=== PATIENT | male | born 1950 | race Caucasian/White ===

== ENCOUNTER 2020-11-16 18:15 | Inpatient (IN) ==
[2020-11-16] MEDS ORDERED: Thiamine (B-1) 100 MG TABLET PO STA (18:37)
[2020-11-16] MEDS ORDERED: Folic Acid 1 MG TABLET PO STA (18:37)
[2020-11-16] MEDS ORDERED: Multivit/Ca/Min/Fe/FA 1 TAB TABLET PO STA (18:39)
[2020-11-16] MEDS ORDERED: *HR* LORazepam 2 MG/ML VIAL IVP PRN ×3 (18:47)
[2020-11-16] MEDS: 0.9 % Sodium Chloride 1,000 ML IVC SCH (18:54)
[2020-11-16] MEDS ORDERED: Naloxone 0.4 MG/ML INJ IVP PRN (22:11)
[2020-11-16] MEDS ORDERED: Ondansetron 4 MG/2 ML VIAL IVP PRN (22:11)
[2020-11-16 22:14] LABS: Alanine Aminotransferase 36 Units/L (7-52); Albumin 3.5 g/dL (3.5-5.7); Albumin/Globulin Ratio 1.1 (1.1-2.2); Alkaline Phosphatase 65 Units/L (34-104); Amylase 68 Units/L (29-103); Aspartate Amino Transferase 76 Units/L (13-39); Bilirubin,Direct 0.2 mg/dL (0.0-0.2); Bilirubin,Indirect 0.5 mg/dL (0.0-1.0); Bilirubin,Total 0.7 mg/dL (0.3-1.0); Ethanol < 10 mg/dL (Less than 10); Globulin 3.3 g/dL (2.4-3.5); Lipase 36 Units/L (11-82); Total Protein 6.8 g/dL (6.4-8.9)
[2020-11-16 22:34] LABS: Troponin I < 0.03 ng/mL (< 0.04)
[2020-11-16 22:37] LABS: INR 1.1; Prothrombin Time 12.5 Seconds (9.4-12.1)
[2020-11-16] MEDS ORDERED: Aspirin Enteric Coated 81 MG Tablet PO ONE (23:27)
[2020-11-17] MEDS: 0.9 % Sodium Chloride 1,000 ML IVC SCH ×2 (05:40→15:59)
[2020-11-17 06:43] LABS: Hematocrit 36.8 % (37.5-50.1); Hemoglobin 12.5 g/dL (12.9-16.9); Mean Corpuscular Hemoglobin 30.9 pg (28.0-33.3); Mean Corpuscular Volume 91.1 fL (83.0-100.0); Mean Platelet Volume 10.1 fL (9.4-12.4); Platelet Count 115 K/mcL (140-400); Red Blood Count 4.04 M/mcL (4.19-5.50); Red Cell Distribution Width 12.3 % (11.5-14.5); White Blood Count 5.1 K/mcL (4.3-11.1)
[2020-11-17 07:13] LABS: % Iron Saturation 51 % (20-55); Iron 132 mcg/dL (65-175); Transferrin 184 mg/dL (203-362)
[2020-11-17 07:14] LABS: BUN/Creatinine Ratio 18 (6-26); Blood Urea Nitrogen 10 mg/dL (8-23); Calcium 8.6 mg/dL (8.6-10.3); Carbon Dioxide 24 mEq/L (23-29); Chloride 104 mEq/L (98-107); Chol/HDL Ratio 1.8 (0-4.9); Cholesterol 148 mg/dL (< 200); Glucose 220 mg/dL (70-105); HDL Cholesterol 81 mg/dL (40-59); LDL Cholesterol,Calculated 58 mg/dL (< 100); Magnesium 1.7 mg/dL (1.6-2.6); Osmolality,Calculated 290 (280-300); Potassium 3.7 mEq/L (3.5-5.1); Sodium 137 mEq/L (136-145); Triglycerides 47 mg/dL (< 150); Troponin I < 0.03 ng/mL (< 0.04); eGFR For African Americans > 60 (> 60); eGFR For Non-African Americans > 60 (> 60)
[2020-11-17 07:19] LABS: Ferritin 397 ng/mL (20-250)
[2020-11-17 07:34] LABS: Folate > 22.3 ng/mL (3.0-16.0); Vitamin B12 744 pg/mL (250-1100)
[2020-11-17] MEDS: Cyanocobalamin (B-12) 1,000 MCG TABLET PO SCH (07:39)
[2020-11-17] MEDS: Aspirin Enteric Coated 81 MG Tablet PO SCH (07:39)
[2020-11-17] MEDS: Cholecalciferol (D-3) 1,000 UNIT (25MCG) TABLET PO SCH (07:39)
[2020-11-17] MEDS: Folic Acid 1 MG TABLET PO SCH (07:40)
[2020-11-17] MEDS: levETIRAcetam 250 MG TABLET PO SCH ×2 (07:40→22:07)
[2020-11-17 08:30] LABS: Estimated Average Glucose 103 mg/dl; Hemoglobin A1C 5.2 %
[2020-11-17] MEDS: traZODone 50 MG TABLET PO SCH (22:05)
[2020-11-18 01:33] LABS: Hematocrit 34.1 % (37.5-50.1); Hemoglobin 11.7 g/dL (12.9-16.9); Mean Corpuscular HGB Conc 34.3 g/dL (31.6-35.5); Mean Corpuscular Hemoglobin 31.7 pg (28.0-33.3); Mean Corpuscular Volume 92.4 fL (83.0-100.0); Mean Platelet Volume 10.1 fL (9.4-12.4); Platelet Count 101 K/mcL (140-400); Red Blood Count 3.69 M/mcL (4.19-5.50); White Blood Count 5.5 K/mcL (4.3-11.1)
[2020-11-18 01:50] LABS: BUN/Creatinine Ratio 14 (6-26); Blood Urea Nitrogen 6 mg/dL (8-23); Carbon Dioxide 25 mEq/L (23-29); Chloride 106 mEq/L (98-107); Glucose 122 mg/dL (70-105); Osmolality,Calculated 281 (280-300); Potassium 3.1 mEq/L (3.5-5.1); Sodium 136 mEq/L (136-145); eGFR For African Americans > 60 (> 60); eGFR For Non-African Americans > 60 (> 60)
[2020-11-18 01:51] LABS: Albumin 3.2 g/dL (3.5-5.7); Albumin/Globulin Ratio 1.1 (1.1-2.2); Bilirubin,Direct 0.3 mg/dL (0.0-0.2); Bilirubin,Indirect 0.6 mg/dL (0.0-1.0); Bilirubin,Total 0.9 mg/dL (0.3-1.0); Globulin 2.8 g/dL (2.4-3.5)
[2020-11-18] MEDS: 0.9 % Sodium Chloride 1,000 ML IVC SCH ×2 (01:59→11:46)
[2020-11-18] MEDS: Cholecalciferol (D-3) 1,000 UNIT (25MCG) TABLET PO SCH (08:39)
[2020-11-18] MEDS: levETIRAcetam 250 MG TABLET PO SCH ×2 (08:40→21:41)
[2020-11-18] MEDS: Aspirin Enteric Coated 81 MG Tablet PO SCH (08:40)
[2020-11-18] MEDS: Folic Acid 1 MG TABLET PO SCH (08:40)
[2020-11-18] MEDS: Cyanocobalamin (B-12) 1,000 MCG TABLET PO SCH (08:40)
[2020-11-18] MEDS: traZODone 50 MG TABLET PO SCH (21:41)
[2020-11-19 03:11] LABS: Mean Corpuscular HGB Conc 34.1 g/dL (31.6-35.5); Mean Corpuscular Hemoglobin 31.7 pg (28.0-33.3); Mean Platelet Volume 10.6 fL (9.4-12.4)
[2020-11-19 03:13] LABS: Hematocrit 35.2 % (37.5-50.1); Mean Corpuscular Volume 93.1 fL (83.0-100.0); Red Blood Count 3.78 M/mcL (4.19-5.50); Red Cell Distribution Width 11.8 % (11.5-14.5); White Blood Count 6.6 K/mcL (4.3-11.1)
[2020-11-19 03:30] LABS: BUN/Creatinine Ratio 19 (6-26); Blood Urea Nitrogen 8 mg/dL (8-23); Calcium 8.9 mg/dL (8.6-10.3); Carbon Dioxide 24 mEq/L (23-29); Chloride 104 mEq/L (98-107); Glucose 115 mg/dL (70-105); Osmolality,Calculated 281 (280-300); Potassium 3.2 mEq/L (3.5-5.1); Sodium 136 mEq/L (136-145); eGFR For African Americans > 60 (> 60); eGFR For Non-African Americans > 60 (> 60)
[2020-11-19] MEDS: Cyanocobalamin (B-12) 1,000 MCG TABLET PO SCH (09:12)
[2020-11-19] MEDS: Folic Acid 1 MG TABLET PO SCH (09:12)
[2020-11-19] MEDS: levETIRAcetam 250 MG TABLET PO SCH ×2 (09:12→21:06)
[2020-11-19] MEDS: Aspirin Enteric Coated 81 MG Tablet PO SCH (09:12)
[2020-11-19] MEDS: Cholecalciferol (D-3) 1,000 UNIT (25MCG) TABLET PO SCH (09:12)
[2020-11-19] MEDS: traZODone 50 MG TABLET PO SCH (21:06)
[2020-11-20 04:58] LABS: Hematocrit 35.8 % (37.5-50.1); Hemoglobin 12.2 g/dL (12.9-16.9); Immature Platelets 5.3 % (1.1-6.1); Mean Corpuscular HGB Conc 34.1 g/dL (31.6-35.5); Mean Corpuscular Hemoglobin 31.4 pg (28.0-33.3); Mean Corpuscular Volume 92.3 fL (83.0-100.0); Mean Platelet Volume 10.6 fL (9.4-12.4); Red Blood Count 3.88 M/mcL (4.19-5.50); Red Cell Distribution Width 12.1 % (11.5-14.5); White Blood Count 6.4 K/mcL (4.3-11.1)
[2020-11-20 05:14] LABS: BUN/Creatinine Ratio 19 (6-26); Blood Urea Nitrogen 9 mg/dL (8-23); Calcium 8.9 mg/dL (8.6-10.3); Carbon Dioxide 22 mEq/L (23-29); Chloride 106 mEq/L (98-107); Glucose 159 mg/dL (70-105); Osmolality,Calculated 284 (280-300); Potassium 3.3 mEq/L (3.5-5.1); Sodium 136 mEq/L (136-145); eGFR For African Americans > 60 (> 60); eGFR For Non-African Americans > 60 (> 60)
[2020-11-20] MEDS: levETIRAcetam 250 MG TABLET PO SCH ×2 (08:53→22:13)
[2020-11-20] MEDS: Cholecalciferol (D-3) 1,000 UNIT (25MCG) TABLET PO SCH (08:53)
[2020-11-20] MEDS: Folic Acid 1 MG TABLET PO SCH (08:53)
[2020-11-20] MEDS: Aspirin Enteric Coated 81 MG Tablet PO SCH (08:53)
[2020-11-20] MEDS: Cyanocobalamin (B-12) 1,000 MCG TABLET PO SCH (08:54)
[2020-11-20 17:12] LABS: Magnesium 1.6 mg/dL (1.6-2.6); Potassium 3.8 mEq/L (3.5-5.1)
[2020-11-20] MEDS: traZODone 50 MG TABLET PO SCH (22:14)
[2020-11-21 04:37] LABS: Hemoglobin 11.8 g/dL (12.9-16.9); Immature Platelets 4.8 % (1.1-6.1); Mean Corpuscular HGB Conc 33.7 g/dL (31.6-35.5); Mean Corpuscular Hemoglobin 30.8 pg (28.0-33.3); Mean Corpuscular Volume 91.4 fL (83.0-100.0); Mean Platelet Volume 10.3 fL (9.4-12.4); Red Blood Count 3.83 M/mcL (4.19-5.50); Red Cell Distribution Width 12.1 % (11.5-14.5); White Blood Count 7.1 K/mcL (4.3-11.1)
[2020-11-21 04:57] LABS: Alanine Aminotransferase 35 Units/L (7-52); Albumin 3.3 g/dL (3.5-5.7); Albumin/Globulin Ratio 1.1 (1.1-2.2); Alkaline Phosphatase 35 Units/L (34-104); Aspartate Amino Transferase 47 Units/L (13-39); BUN/Creatinine Ratio 26 (6-26); Bilirubin,Direct 0.2 mg/dL (0.0-0.2); Bilirubin,Indirect 0.4 mg/dL (0.0-1.0); Bilirubin,Total 0.6 mg/dL (0.3-1.0); Blood Urea Nitrogen 10 mg/dL (8-23); Calcium 8.6 mg/dL (8.6-10.3); Carbon Dioxide 22 mEq/L (23-29); Chloride 105 mEq/L (98-107); Globulin 3.1 g/dL (2.4-3.5); Glucose 112 mg/dL (70-105); Osmolality,Calculated 280 (280-300); Potassium 3.5 mEq/L (3.5-5.1); Sodium 135 mEq/L (136-145); Total Protein 6.4 g/dL (6.4-8.9); eGFR For African Americans > 60 (> 60); eGFR For Non-African Americans > 60 (> 60)
[2020-11-21] MEDS ORDERED: Magnesium Sulfate 1 GM/102 ML PIGGYBACK IVPB ONE (07:21)
[2020-11-21] MEDS: Cyanocobalamin (B-12) 1,000 MCG TABLET PO SCH (08:58)
[2020-11-21] MEDS: levETIRAcetam 250 MG TABLET PO SCH ×2 (08:58→21:24)
[2020-11-21] MEDS: Folic Acid 1 MG TABLET PO SCH (08:58)
[2020-11-21] MEDS: Aspirin Enteric Coated 81 MG Tablet PO SCH (08:58)
[2020-11-21] MEDS: Cholecalciferol (D-3) 1,000 UNIT (25MCG) TABLET PO SCH (08:58)
[2020-11-21] MEDS: traZODone 50 MG TABLET PO SCH (21:24)
[2020-11-22 06:24] LABS: Hematocrit 38.4 % (37.5-50.1); Hemoglobin 13.1 g/dL (12.9-16.9); Mean Corpuscular HGB Conc 34.1 g/dL (31.6-35.5); Mean Corpuscular Hemoglobin 31.6 pg (28.0-33.3); Mean Corpuscular Volume 92.5 fL (83.0-100.0); Mean Platelet Volume 11.4 fL (9.4-12.4); Platelet Count 166 K/mcL (140-400); Red Blood Count 4.15 M/mcL (4.19-5.50); Red Cell Distribution Width 12.2 % (11.5-14.5); White Blood Count 6.7 K/mcL (4.3-11.1)
[2020-11-22 06:47] LABS: BUN/Creatinine Ratio 12 (6-26); Blood Urea Nitrogen 6 mg/dL (8-23); Calcium 9.5 mg/dL (8.6-10.3); Carbon Dioxide 24 mEq/L (23-29); Chloride 104 mEq/L (98-107); Glucose 114 mg/dL (70-105); Magnesium 1.8 mg/dL (1.6-2.6); Osmolality,Calculated 278 (280-300); Potassium 3.9 mEq/L (3.5-5.1); Sodium 135 mEq/L (136-145); eGFR For African Americans > 60 (> 60); eGFR For Non-African Americans > 60 (> 60)
[2020-11-22] MEDS: Cyanocobalamin (B-12) 1,000 MCG TABLET PO SCH (08:17)
[2020-11-22] MEDS: levETIRAcetam 250 MG TABLET PO SCH ×2 (08:17→22:03)
[2020-11-22] MEDS: Cholecalciferol (D-3) 1,000 UNIT (25MCG) TABLET PO SCH (08:17)
[2020-11-22] MEDS: Aspirin Enteric Coated 81 MG Tablet PO SCH (08:17)
[2020-11-22] MEDS: Folic Acid 1 MG TABLET PO SCH (08:18)
[2020-11-22] MEDS: amLODIPine 5 MG TABLET PO SCH (14:54)
[2020-11-22] MEDS: traZODone 50 MG TABLET PO SCH (22:03)
[2020-11-23] MEDS: Aspirin Enteric Coated 81 MG Tablet PO SCH (07:46)
[2020-11-23] MEDS: levETIRAcetam 250 MG TABLET PO SCH (07:46)
[2020-11-23] MEDS: amLODIPine 5 MG TABLET PO SCH (07:47)
[2020-11-23] MEDS: Cyanocobalamin (B-12) 1,000 MCG TABLET PO SCH (07:47)
[2020-11-23] MEDS: Folic Acid 1 MG TABLET PO SCH (07:47)
[2020-11-23] MEDS: Cholecalciferol (D-3) 1,000 UNIT (25MCG) TABLET PO SCH (07:47)
[2020-11-23 11:17] VITALS: BP 131/82
== END 2020-11-23 15:29 | DRG 641 ==
LOC: 3BNU 18:15 → EMEROOARM 18:15 → SUATTDRO 20:34 → 3BNU 21:45
PROVIDERS: ADMIT Internal Medicine; ATTEND Nurse Practitioner